=== PATIENT | male | born 1995 | race Native Hawaiian/Other Pacific Islander ===

== ENCOUNTER 2022-11-27 08:46 | Emergency (ER) | payer OTHER ==
[~2022-11-27] VITALS: Ht 170.2 cm; Wt 140.0 kg
[2022-11-27 12:11] LABS: BASO # 0.1 10^3/uL (0.0-0.2); BASO % 1.6 % (0.0-1.0); EOS # 0.1 10^3/uL (0.0-0.5); EOS % 1.1 % (0.0-3.0); HEMATOCRIT 48.1 % (42.0-52.0); HEMOGLOBIN 15.8 g/dl (13.5-17.5); LYMPH # 1.3 10^3/uL (1.5-5.0); LYMPH % 29.8 % (24.0-44.0); MEAN CORPUSCULAR HEMOGLOBIN 28.9 pg (27.0-33.0); MEAN CORPUSCULAR HGB CONC 32.8 g/dl (32.0-36.5); MEAN CORPUSCULAR VOLUME 88.1 fl (80.0-96.0); MONO # 0.3 10^3/uL (0.0-0.8); MONO % 7.6 % (2.0-8.0); NEUTROPHILS # 2.7 10^3/uL (1.5-8.5); NEUTROPHILS % 59.7 % (36.0-66.0); PLATELET COUNT, AUTOMATED 346 10^3/uL (150-450); RED BLOOD COUNT 5.46 10^6/uL (4.30-6.10); WHITE BLOOD COUNT 4.5 10^3/uL (4.0-10.0)
[2022-11-27 12:31] LABS: CK-MB VALUE MASS < 1.0 NG/ML (<3.6)
[2022-11-27 12:35] LABS: BLOOD UREA NITROGEN 13 MG/DL (9-23); CALCIUM LEVEL 9.4 MG/DL (8.5-10.1); CARBON DIOXIDE LEVEL 29 MMOL/L (20-31); CHLORIDE LEVEL 107 MMOL/L (98-107); CPK CREATINE PHOSPHOKINASE 102 U/L (46-171); CREATININE FOR GFR 0.83 MG/DL (0.70-1.30); GLOMERULAR FILTRATION RATE > 60.0 (>60); GLUCOSE, FASTING 84 MG/DL (60-100); MB/CK RELATIVE INDEX 0.98 (< OR =4); POTASSIUM SERUM 4.2 MMOL/L (3.5-5.1); SODIUM LEVEL 142 MMOL/L (136-145)
[2022-11-27 12:43] LABS: ERYTHROCYTE SEDIMENTATION RATE 5 mm/hr (0-15)
[2022-11-27] MEDS ORDERED: KETOROLAC 30 MG/ML 1ML VIAL IV ONE (12:50)
[2022-11-27] MEDS ORDERED: KETO10TAB PO (13:22)
[2022-11-27 13:30] VITALS: BP 138/77
[2022-11-27 17:16] LABS: C REACTIVE PROTEIN QUANTITATIV < 0.40 MG/DL (<1.0)
== END 2022-11-27 13:42 | disposition home or self-care (01) ==
LOC: M ED 08:46
DX: M94.0 Chondrocostal junction syndrome [Tietze] (principal); R07.9 Chest pain, unspecified; F41.9 Anxiety disorder, unspecified
CPT/HCPCS: 36415; 71045; 80048; 82550; 82553; 84484; 85025; 85379; 85652; 86140; 93005; 93041; 96374; 99284; J1885